=== PATIENT | male | born 1990 | race Hispanic/Latino ===

== ENCOUNTER 2017-11-01 08:45 | Emergency (ER) | payer OTHER ==
[~2017-11-01] VITALS: Ht 180.3 cm; Wt 72.6 kg
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
[2017-11-01 10:25] LABS: ABSOLUTE BASOPHIL COUNT 0 /CUMM (0.0-0.2); ABSOLUTE EOSINOPHIL COUNT 0.2 /CUMM (0.0-0.7); ABSOLUTE GRANULOCYTE CT 6.6 /CUMM (1.4-6.5); ABSOLUTE LYMPH COUNT 1.6 /CUMM (1.2-3.4); ABSOLUTE MONOCYTE COUNT 0.8 /CUMM (0.10-0.60); BASOPHIL % 0 % (0.0-2.0); EOSINOPHIL % 2.2 % (0-5); GRANULOCYTE % 71.1 % (42.2-75.2); HEMATOCRIT 44.9 % (42-52); MEAN CORPUSCULAR HGB 30.8 PG (27.0-31.0); MEAN CORPUSCULAR HGB CONC 33.6 G/DL (33.0-37.0); MEAN CORPUSCULAR VOLUME 91.7 FL (80.0-94.0); MEAN PLATELET VOLUME 7.8 FL (7.4-10.4); PLATELET COUNT 372 /CUMM (130-400); RBC DISTRIBUTION WIDTH 12.6 % (11.5-14.5); WHITE BLOOD CELL COUNT 9.3 /CUMM (4.8-10.8)
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
[2017-11-01 12:05] VITALS: BP 132/74
[2017-11-01] MEDS ORDERED: TRAMADOL HCL50 M1 PO (12:17)
== END 2017-11-01 12:13 ==
LOC: EDBD 08:45 → ERH 08:45
PROVIDERS: Physician Assistant Medical
DX: S06.0X9A Concussion with loss of consciousness of unspecified duration, initial encounter (principal); W21.11XA Struck by baseball bat, initial encounter; Y92.9 Unspecified place or not applicable; Y93.9 Activity, unspecified
CPT/HCPCS: 74177; 96374; J1885